=== PATIENT | male | born 1950 | race Caucasian/White ===

== ENCOUNTER 2016-05-22 12:19 | Outpatient (CLI) | payer MEDICARE, OTHER | END 2016-05-22 12:20 | disposition home or self-care (01) | DX: D64.9 Anemia, unspecified (principal); E55.9 Vitamin D deficiency, unspecified; Z12.5 Encounter for screening for malignant neoplasm of prostate; I10 Essential (primary) hypertension; Z79.899 Other long term (current) drug therapy; J44.9 Chronic obstructive pulmonary disease, unspecified; R73.01 Impaired fasting glucose | CPT/HCPCS: 36415; 80053; 80061; 82306; 83036; 84443; 85025; G0103 ==

== ENCOUNTER 2016-06-20 12:07 | Outpatient (CLI) | payer MEDICARE, OTHER | END 2016-06-20 12:08 | disposition home or self-care (01) | DX: A31.9 Mycobacterial infection, unspecified (principal) ==